=== PATIENT | male | born 1960 | race Caucasian/White ===

== ENCOUNTER 2017-06-28 21:15 | Emergency (ER) | payer SELFPAY ==
[2017-06-28] MEDS ORDERED: ASPIRIN TABLET 325 MG TAB ONE (21:30)
[2017-06-28] MEDS ORDERED: NITROGLYCERIN 0.4 MG 25 EA TAB SL ONE ×2 (21:38→21:49)
[2017-06-28] MEDS ORDERED: ASPIRIN TABLET 325 MG TAB PO ONE (21:49)
[2017-06-28] MEDS ORDERED: NITROGLYCERIN/D5W IV 250 ML IVS ONE (21:52)
[2017-06-28] MEDS ORDERED: NITROGLYCERIN/D5W IV 50,000 MCG in PREMIX BOTTLE 1 BOTTLE IVS SCH (22:00)
--- NOTE | 2017-06-28 22:09 | RAD ---
EXAM DESCRIPTION: Chest,1 View CLINICAL HISTORY: chest pain 24 hours COMPARISON: 12/10/2012 FINDINGS: Single frontal view of the chest. The cardiomediastinal silhouette has normal size and contour. No consolidation, pneumothorax, or pleural effusion. Leads overlie the chest. No displaced rib fractures identified. Low lung volumes. Upper abdominal soft tissues are unremarkable. IMPRESSION: 1. No acute pulmonary process identified. Electronically signed by: Tai Delaney 06/28/2017 10:08 PM [facility]
[2017-06-28] MEDS ORDERED: TENECTEPLASE 50 MG VIAL ONE (22:25)
[2017-06-28] MEDS ORDERED: HEPARIN SODIUM (PORCINE) 5,000 U/ML VIAL IV ONE (22:28)
[2017-06-28] MEDS ORDERED: CLOPIDOGREL 75 MG TAB PO ONE (22:28)
--- NOTE | 2017-06-28 22:32 | ED.PDOC ---
History of Present Illness - General Chief Complaint: Chest Pain/[place] Stated Complaint: chest pain Time Seen by Provider: 06/28/17 21:17 Source: patient Exam Limitations: no limitations - History of Present Illness Initial Comments: the patient is a 57-year-old male presenting to the emergency room secondary to chest pain and headache that started approximately 36 hours ago. He does have a history of having had a myocardial infarction couple of years ago that did resolve with lytic therapy. He has not been on any antiplatelet therapy or any cholesterol medications. The chest pain, little bit better last night until 10 AM this morning when he went back to work. He has maximized at approximately a 6 out of 10 in pain. It has been steady since 10 AM this morning. Blood pressure is markedly elevated around 190 systolic and upon arrival here. He is alert and oriented 4. He is ambulatory. He does not appear to be any distress. Timing/Duration: 24 hours Severity: moderate Improving Factors: nothing Worsening Factors: nothing Associated Symptoms: chest pain Allergies/Adverse Reactions: Allergies Codeine Adverse Reaction (Verified 01/26/16 13:24) Other Causes hyperactivity Home Medications: Ambulatory Orders Aspirin [Baby Aspirin] 81 mg PO DAILY 01/26/16 Ciprofloxacin [Cipro] 250 mg PO BID #20 tab 01/26/16 Famotidine 20 mg PO DAILY #30 tab 01/26/16 Lovastatin 20 mg PO BEDTIME 01/26/16 Metformin HCl 1,000 mg PO BID 01/26/16 Ondansetron [Zofran Odt] 4 mg PO Q4H PRN #10 tab 01/26/16 Review of Systems - Review of Systems Constitutional: States: no symptoms reported EENTM: States: no symptoms reported Respiratory: States: no symptoms reported Cardiology: States: chest pain Gastrointestinal/Abdominal: States: no symptoms reported Genitourinary: States: no symptoms reported Musculoskeletal: States: no symptoms reported Skin: States: no symptoms reported Neurological: States: no symptoms reported Endocrine: States: no symptoms reported All other Systems: No Change from Baseline Past Medical History (General) - Patient Medical History Hx Stroke: No Hx Cardiac Disorders: Yes - [place] 2012; high cholesterol Hx Congestive Heart Failure: No Hx Diabetes: Yes Hx MRSA: No Surgical History: no surgical history - Vaccination History Hx Influenza Vaccination: No Hx Pneumococcal Vaccination: No - Social History Hx Tobacco Use: Yes - Quit 1987 Family Medical History - Family History Father Living Status: Hx Family Cancer: Yes - mouth, throat Physical Exam - Physical Exam General Appearance: Alert, Comfortable, No apparent distress Eye Exam: bilateral normal Ears, Nose, Throat: hearing grossly normal, normal ENT inspection, normal pharynx Neck: full range of motion, supple Respiratory: lungs clear, normal breath sounds, no respiratory distress, no accessory muscle use Cardiovascular/Chest: normal peripheral pulses, regular rate, rhythm, no edema Peripheral Pulses: radial,right: 2+, radial,left: 2+, dorsalis pedis,right: 2+, dorsalis pedis,left: 2+ Gastrointestinal/Abdominal: non tender, soft - obese Rectal Exam: deferred Back Exam: normal inspection, no CVA tenderness Extremity: normal range of motion, non-tender, normal inspection, no pedal edema , no calf tenderness, normal capillary refill 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 He has been having pain greater than 12 hours however he is still having pain and there are still ST segment elevations. The patient has refused air transport which will delay his arrival at a intervention facility by at least 1 hour. The decision has been made to give lytics based on these findings. The patient is receiving IV nitroglycerin to help reduce chest pain and reduce his blood pressure. He has received an aspirin. He is receiving IV heparin. He is receiving oral Plavix. All of this has been explained to the patient and all questions have been answered. The patient will be transferred as soon as an ambulance is available for transfer to a higher level of care and the possibility of percutaneous intervention. Continue monitoring. No significant hypotension withnitroglycerin so far. Critical care time spent in treatment of this patient's condition and arrangement for his care is 45 minutes excluding otherwise billable procedures. - Results/Orders Results/Orders: 06/28/17 21:38 Telemetry .CONTINUOUS 06/28/17 21:45 EKG STAT 06/28/17 22:00 Nitroglycerin/D5w IV 50,000 mcg Premix Bottle 1 bottle IVS PRN Laboratory Results - last 24 hr 06/28/17 06/28/17 06/28/17 21:45 21:45 21:45 WBC 11.5 H RBC 5.55 Hgb 16.4 Hct 48.9 MCV 88.1 MCH 29.5 MCHC 33.4 RDW 14.3 Plt Count 232 MPV 7.5 Absolute Neuts (auto) 8.30 H Absolute Lymphs (auto) 2.20 Absolute Monos (auto) 0.70 Absolute Eos (auto) 0.20 Absolute Basos (auto) 0.10 Neutrophils % 72.4 Lymphocytes % 18.9 L Monocytes % 6.4 Eosinophils % 1.3 Basophils % 1.0 PT 10.9 INR 0.960 PTT (SP) 32.9 D-Dimer, Quantitative < 230 Sodium 138 Potassium 3.8 Chloride 100 L Carbon Dioxide 28 Anion Gap 13.8 BUN 15 Creatinine 0.95 BUN/Creatinine Ratio 15.8 Random Glucose 185 H Serum Osmolality 281.3 Calcium 9.2 Magnesium 1.9 Total Bilirubin 0.6 AST 22 ALT 16 Alkaline Phosphatase 60 Creatine Kinase 320 H* CK-MB (CK-2) 15.0 H* CK-MB (CK-2) % 4.69 H Troponin I 0.48 H* B-Natriuretic Peptide 25.0 Serum Total Protein 7.7 Albumin 4.2 Globulin 3.5 Albumin/Globulin Ratio 1.2 chest x-ray shows no acute changes. Initial and repeat EKG show approximately [address] segment elevation in inferior leads and once millimeter ST segment depression in aVL. Otherwise EKG appears consistent with previous EKGs. Rate is borderline normal sinus rhythm to mild sinus tachycardia. QT interval is around 450 ms. Departure - Departure Clinical Impression: ST elevation (STEMI) myocardial infarction Qualifiers: Involved coronary artery: other inferior wall coronary artery Qualified Code(s) : I21.19 - ST elevation (STEMI) myocardial infarction involving other coronary artery of inferior wall Disposition: Transfer to Hospital Referrals: Bernice Allen NP [Primary Care Provider] - 1-2 Weeks Home Medications: Ambulatory Orders Aspirin [Baby Aspirin] 81 mg PO DAILY 01/26/16 Ciprofloxacin [Cipro] 250 mg PO BID #20 tab 01/26/16 Famotidine 20 mg PO DAILY #30 tab 01/26/16 Lovastatin 20 mg PO BEDTIME 01/26/16 Metformin HCl 1,000 mg PO BID 01/26/16 Ondansetron [Zofran Odt] 4 mg PO Q4H PRN #10 tab 01/26/16 Transfer to Outside Facility - Transfer Information Accepting Provider:: dr johnson Accepting Facility: [facility] Reason for Transfer: required specialist not available
[2017-06-28] MEDS ORDERED: TENECTEPLASE 50 MG VIAL IV ONE (22:40)
[2017-06-28 23:29] VITALS: BP 172/101; TEMP 98.7; O2SAT 95
== END 2017-06-28 23:40 | disposition short-term general hospital (02) ==
LOC: ER 21:15
DX: I21.19 ST elevation (STEMI) myocardial infarction involving other coronary artery of inferior wall (principal); I25.2 Old myocardial infarction; E11.9 Type 2 diabetes mellitus without complications; E78.00 Pure hypercholesterolemia, unspecified; Z79.82 Long term (current) use of aspirin
CPT/HCPCS: 36415; 71045; 80053; 82550; 82553; 83735; 83880; 84484; 85025; 85379; 85610; 85730; 93005; J1644; J3101

== ENCOUNTER → 2019-10-20 | Outpatient (CLI) | payer OTHER | LOC: YCFC.O 10:34 | PROVIDERS: ATTEND Family Medicine | DX: Z20.828 Contact with and (suspected) exposure to other viral communicable diseases (principal) ==

== ENCOUNTER → 2020-05-07 | Outpatient (CLI) | payer OTHER | LOC: YCFC.O 06:35 | PROVIDERS: ATTEND Nurse Practitioner | DX: I10 Essential (primary) hypertension (principal); E11.9 Type 2 diabetes mellitus without complications ==